=== PATIENT | female | born 1945 | race Asian ===

== ENCOUNTER 2016-10-15 19:26 | Emergency (ER) | payer OTHER ==
[~2016-10-15] VITALS: Ht 160 cm; Wt 61.2 kg
[~2016-10-15 19:26] MED LIST: ADLT ASA LOW81 MG OR; ALBUTEROL0.083 % IN; CADUET10 MG/10 M OR; CELEXA40 MG PO; CLONIDINE0.1 MG; CLONIDINE0.1 MG PO; CLOP75TA2 PO; DITROPAN XL10 MG PO; ESTRING2 MG PO; FLUTMIS14 INH; GABA300C2 PO; HYDRALAZINE50 MG PO; LINZESS290 MCG OR; LIPITOR40 MG PO; MELOXICAM15 MG PO; OMEPRAZOLE20 M2 PO; SIMV20TA2 PO; [UNRECOGNIZED DRUG - OTHER] PO
[2016-10-15 19:49] LABS: PLATELET COUNT 230 K/uL (152-353)
[2016-10-15 20:01] LABS: POTASSIUM 3.5 mmol/L (3.6-5.2); SODIUM 134 mmol/L (136-145)
[2016-10-15 22:34] VITALS: BP 184/74; TEMP 99.9
== END 2016-10-15 22:34 | disposition home or self-care (01) ==
LOC: ED 19:26
DX: J06.9 Acute upper respiratory infection, unspecified (principal); J44.1 Chronic obstructive pulmonary disease with (acute) exacerbation
CPT/HCPCS: 36415; 80053; 82550; 84484; 85027; 87081; 87804; 87880; 96374; 99284; J1885; J2930

== ENCOUNTER 2017-01-07 21:31 | Emergency (ER) | payer OTHER ==
[~2017-01-07] VITALS: Ht 160 cm; Wt 63.5 kg
[2017-01-07 22:36] LABS: PLATELET COUNT 198 K/uL (152-353)
[2017-01-07 22:48] LABS: POTASSIUM 3.6 mmol/L (3.6-5.2)
[2017-01-07 23:21] VITALS: BP 183/96; TEMP 98
== END 2017-01-07 23:24 | disposition home or self-care (01) ==
LOC: ED 21:31
DX: J44.1 Chronic obstructive pulmonary disease with (acute) exacerbation (principal)
CPT/HCPCS: 80053; 85027; 99283

== ENCOUNTER 2017-01-08 06:53 | Emergency (ER) | payer OTHER ==
[~2017-01-08] VITALS: Ht 160 cm; Wt 63.5 kg
[2017-01-08 12:00] VITALS: TEMP 98
[2017-01-08 13:36] VITALS: BP 172/65
== END 2017-01-08 13:44 | disposition home or self-care (01) ==
LOC: ED 06:53
DX: J44.1 Chronic obstructive pulmonary disease with (acute) exacerbation (principal)
CPT/HCPCS: 36600; 82805; 83880; 96374; 99284; J2930

== ENCOUNTER 2017-01-11 11:04 | Outpatient (CLI) | payer OTHER | END 2017-01-11 11:07 | disposition short-term general hospital (02) | LOC: AMB 11:04 | DX: J44.1 Chronic obstructive pulmonary disease with (acute) exacerbation (principal) | CPT/HCPCS: A0425; A0427 ==

== ENCOUNTER 2017-01-11 11:09 | Emergency (ER) | payer OTHER ==
[~2017-01-11] VITALS: Ht 160 cm; Wt 63.5 kg
[2017-01-11 11:43] LABS: PLATELET COUNT 220 K/uL (152-353)
[2017-01-11 11:50] LABS: POTASSIUM 3.5 mmol/L (3.6-5.2)
[2017-01-11 12:52] VITALS: TEMP 98
[2017-01-11 13:53] VITALS: BP 160/70
== END 2017-01-11 13:55 | disposition short-term general hospital (02) ==
LOC: ED 11:09
PROVIDERS: Emergency Medicine
DX: R06.09 Other forms of dyspnea (principal); J44.1 Chronic obstructive pulmonary disease with (acute) exacerbation; R79.89 Other specified abnormal findings of blood chemistry
CPT/HCPCS: 36415; 80053; 82550; 83880; 84484; 85007; 85027; 87040; 93005; 96374; 99281; J2930

== ENCOUNTER 2017-01-11 13:47 | Outpatient (CLI) | payer OTHER | END 2017-01-11 14:07 | disposition short-term general hospital (02) | LOC: AMB 13:47 | DX: R06.09 Other forms of dyspnea (principal); J44.1 Chronic obstructive pulmonary disease with (acute) exacerbation; R79.89 Other specified abnormal findings of blood chemistry | CPT/HCPCS: A0425; A0429 ==

== ENCOUNTER 2017-06-15 09:58 | Outpatient (CLI) | payer OTHER | END 2017-06-15 19:05 | disposition home or self-care (01) | LOC: LABW 09:58 | DX: K64.0 First degree hemorrhoids (principal) | CPT/HCPCS: 82272 ==

== ENCOUNTER 2017-07-06 17:26 | Inpatient (IN) | payer OTHER ==
[2017-07-06] VITALS (8 sets, daily range): BP systolic 124–150; BP diastolic 49–81; TEMP 98–101.9; Ht 160 cm; Wt 72.3 kg
[~2017-07-06] VITALS: Ht 160 cm; Wt 72.3 kg
[2017-07-06 19:27] LABS: PLATELET COUNT 258 K/uL (152-353)
[2017-07-06 19:31] LABS: POTASSIUM 3.9 mmol/L (3.6-5.2)
[2017-07-07] VITALS (21 sets, daily range): BP systolic 130–170; BP diastolic 55–97; TEMP 98.4–102
[2017-07-07 09:05] LABS: POTASSIUM 4.1 mmol/L (3.6-5.2)
[2017-07-07 09:13] LABS: PLATELET COUNT 217 K/uL (152-353)
[2017-07-07] MEDS ORDERED: LEVO-T112 MCG PO (10:37)
[2017-07-07] MEDS ORDERED: TRIA37.541 PO (10:46)
[2017-07-07] MEDS ORDERED: METH4TAB6 PO (10:47)
[2017-07-07] MEDS ORDERED: PROTONIX20 MG PO (10:48)
[2017-07-07] MEDS ORDERED: CLON0.1T16 PO (16:16)
[2017-07-08] VITALS (24 sets, daily range): BP systolic 106–191; BP diastolic 62–97; TEMP 98.4–100.1
[2017-07-08 06:51] LABS: PLATELET COUNT 191 K/uL (152-353)
[2017-07-08 06:53] LABS: POTASSIUM 4.1 mmol/L (3.6-5.2)
[2017-07-09] VITALS (14 sets, daily range): BP systolic 162–196; BP diastolic 69–89; TEMP 98–99
[2017-07-09 06:43] LABS: POTASSIUM 4.1 mmol/L (3.6-5.2)
[2017-07-09 06:44] LABS: PLATELET COUNT 195 K/uL (152-353)
[2017-07-10 01:43] VITALS: BP 134/68; TEMP 98.3
[2017-07-10 05:17] VITALS: BP 185/70; TEMP 98.5
[2017-07-10 07:54] VITALS: BP 184/77; TEMP 99
[2017-07-10 07:59] LABS: PLATELET COUNT 219 K/uL (152-353)
[2017-07-10 08:02] LABS: POTASSIUM 3.9 mmol/L (3.6-5.2)
[2017-07-10 12:00] VITALS: BP 186/52; TEMP 98.6
[2017-07-10 16:00] VITALS: BP 126/72; TEMP 98.6
[2017-07-11 00:51] VITALS: BP 168/59; TEMP 98.7
[2017-07-11 05:37] VITALS: BP 115/70; TEMP 98.2
[2017-07-11 05:45] LABS: POTASSIUM 3.8 mmol/L (3.6-5.2)
[2017-07-11 06:13] LABS: PLATELET COUNT 229 K/uL (152-353)
[2017-07-11 11:49] VITALS: BP 126/66; TEMP 97.8
[2017-07-11 20:00] VITALS: BP 139/73; TEMP 97.8
[2017-07-12] VITALS: BP 183/73; TEMP 97.6
[2017-07-12 05:42] LABS: PLATELET COUNT 256 K/uL (152-353)
[2017-07-12 05:58] LABS: POTASSIUM 3.9 mmol/L (3.6-5.2)
[2017-07-12 06:15] VITALS: BP 194/77; TEMP 98.6
[2017-07-12 08:00] VITALS: BP 188/66; TEMP 98.9
== END 2017-07-12 11:30 | disposition home or self-care (01) | DRG 194 ==
LOC: ED 17:26 → ICU 21:35 → MED/SURG 07-09 11:42
PROVIDERS: ADMIT Emergency Medicine
DX: J18.8 Other pneumonia, unspecified organism (principal); J44.0 Chronic obstructive pulmonary disease with (acute) lower respiratory infection; E83.42 Hypomagnesemia; D53.9 Nutritional anemia, unspecified; R51 Headache; E03.8 Other specified hypothyroidism; I10 Essential (primary) hypertension; R94.4 Abnormal results of kidney function studies
CPT/HCPCS: 36415; 36600; 51702; 80053; 80202; 81000; 82550; 82553; 82570; 82805; 83735; 84100; 84300; 84484; 84540; 85027; 87040; 87070; 87205; 90732; 93005; 94640; 94664; 94760; 96365; 96368; 96372; 96375; 96376; J0456; J0696; J1650; J1940; J2920; J2930; J3475

== ENCOUNTER 2017-08-07 11:55 | Outpatient (CLI) | payer OTHER ==
[~2017-08-07 11:55] MED LIST changes: +CLON0.1T16 PO; +LEVO-T112 MCG PO; +METH4TAB6 PO; +PROTONIX20 MG PO; +TRIA37.541 PO
== END 2017-08-07 21:42 | disposition home or self-care (01) ==
LOC: MAMMO 11:55
DX: Z12.31 Encounter for screening mammogram for malignant neoplasm of breast (principal)

== ENCOUNTER 2017-08-14 12:57 | Outpatient (CLI) | payer OTHER | END 2017-08-14 18:04 | disposition home or self-care (01) | LOC: MAMMO 12:57 | DX: N64.59 Other signs and symptoms in breast (principal) ==

== ENCOUNTER 2017-09-20 10:16 | Outpatient (CLI) | payer OTHER | END 2017-09-20 11:20 | disposition home or self-care (01) | LOC: RESP 10:16 | DX: R06.02 Shortness of breath (principal) | CPT/HCPCS: 94640 ==

== ENCOUNTER 2018-03-18 10:27 | Outpatient (CLI) | payer OTHER | END 2018-03-18 20:26 | disposition home or self-care (01) | LOC: CT 10:27 | DX: J18.8 Other pneumonia, unspecified organism (principal) ==

== ENCOUNTER 2018-06-21 09:09 | Outpatient (CLI) | payer OTHER | END 2018-06-21 19:24 | disposition home or self-care (01) | LOC: CT 09:09 | DX: J18.9 Pneumonia, unspecified organism (principal) ==

== ENCOUNTER 2018-12-02 14:18 | Emergency (ER) | payer OTHER ==
[~2018-12-02] VITALS: Ht 160 cm; Wt 55.8 kg
[2018-12-02 14:55] VITALS: BP 153/58; TEMP 96.6
[2018-12-02 16:01] LABS: PLATELET COUNT 245 K/uL (152-353)
[2018-12-02 16:35] LABS: POTASSIUM 4.8 mmol/L (3.6-5.2)
== END 2018-12-02 17:47 | disposition home or self-care (01) ==
LOC: ED 14:18
PROVIDERS: Emergency Medicine
DX: R25.2 Cramp and spasm (principal); E86.0 Dehydration
CPT/HCPCS: 80053; 85027; 99283

== ENCOUNTER 2019-07-15 15:53 | Outpatient (CLI) | payer OTHER ==
[2019-07-16] MEDS ORDERED: COZAAR25 MG PO (03:07)
[2019-07-16] MEDS ORDERED: LORA1TAB17 PO (03:09)
[2019-07-16] MEDS ORDERED: LORATADINE PO (03:12)
[2019-07-16] MEDS ORDERED: LIPITOR40 MG PO (03:14)
[2019-07-16] MEDS ORDERED: LINZESS290 MCG PO (03:16)
[2019-07-16] MEDS ORDERED: CLON0.1T16 PO (03:17)
[2019-07-16] MEDS ORDERED: TRELEGY ELLIPTA1 AER PO (03:24)
[2019-07-16] MEDS ORDERED: Chantix PO (14:53)
[2019-07-16] MEDS ORDERED: LEVAQUIN 500MG TAB PO (14:55)
[2019-07-16] MEDS ORDERED: PRED10TA27 PO (14:55)
== END 2019-07-15 15:56 | disposition short-term general hospital (02) ==
LOC: AMB 15:53
DX: R06.09 Other forms of dyspnea (principal); R06.02 Shortness of breath
CPT/HCPCS: A0425; A0427

== ENCOUNTER 2019-07-15 16:07 | Observation (INO) | payer OTHER ==
[~2019-07-15] VITALS: Ht 160 cm; Wt 60.6 kg
[2019-07-15 16:07] VITALS: BP 161/67; TEMP 98.1
[2019-07-15 16:57] LABS: PLATELET COUNT 236 K/uL (152-353)
[2019-07-15 17:05] LABS: POTASSIUM 4.3 mmol/L (3.6-5.2)
[2019-07-15 17:30] VITALS: BP 127/55
[2019-07-15 18:30] VITALS: BP 146/44
[2019-07-15 19:30] VITALS: BP 156/48
[2019-07-15 20:00] VITALS: BP 177/66; TEMP 100.9
[2019-07-15 22:49] VITALS: BP 177/66; TEMP 100.9; Ht 160 cm; Wt 60.6 kg
[2019-07-16 00:21] VITALS: BP 150/83; TEMP 98.5
[2019-07-16] MEDS ORDERED: COZAAR25 MG PO (03:07)
[2019-07-16] MEDS ORDERED: LORA1TAB17 PO (03:09)
[2019-07-16] MEDS ORDERED: LORATADINE PO (03:12)
[2019-07-16] MEDS ORDERED: LIPITOR40 MG PO (03:14)
[2019-07-16] MEDS ORDERED: LINZESS290 MCG PO (03:16)
[2019-07-16] MEDS ORDERED: CLON0.1T16 PO (03:17)
[2019-07-16] MEDS ORDERED: TRELEGY ELLIPTA1 AER PO (03:24)
[2019-07-16 04:00] VITALS: BP 181/55; TEMP 98.4
[2019-07-16 08:00] VITALS: BP 110/74; TEMP 98.3
[2019-07-16 12:00] VITALS: BP 185/57; TEMP 98.5
[2019-07-16 14:23] LABS: POTASSIUM 4.2 mmol/L (3.6-5.2)
[2019-07-16] MEDS ORDERED: Chantix PO (14:53)
[2019-07-16] MEDS ORDERED: LEVAQUIN 500MG TAB PO (14:55)
[2019-07-16] MEDS ORDERED: PRED10TA27 PO (14:55)
[2019-07-16 16:00] VITALS: BP 145/82; TEMP 98.4
== END 2019-07-16 20:02 | disposition home or self-care (01) ==
LOC: ED 16:07 → MED/SURG 19:00
PROVIDERS: Family Medicine; ADMIT Internal Medicine
DX: J44.1 Chronic obstructive pulmonary disease with (acute) exacerbation (principal); E03.8 Other specified hypothyroidism; Z72.0 Tobacco use; E78.49 Other hyperlipidemia; F41.8 Other specified anxiety disorders; K59.09 Other constipation; G62.89 Other specified polyneuropathies; I12.9 Hypertensive chronic kidney disease with stage 1 through stage 4 chronic kidney disease, or unspecified chronic kidney disease; N18.3 Chronic kidney disease, stage 3 (moderate); N17.8 Other acute kidney failure
CPT/HCPCS: 36600; 80048; 80053; 82805; 85027; 93005; 94640; 94664; 94760; 96365; 96372; 96374; 96375; 99220; 99284; G0378; J1650; J1956; J2930; J3490

== ENCOUNTER 2020-05-10 14:40 | Emergency (ER) | payer OTHER ==
[~2020-05-10] VITALS: Ht 160 cm; Wt 54.4 kg
[~2020-05-10 14:40] MED LIST changes: +COZAAR25 MG PO; +Chantix PO; +LEVAQUIN 500MG TAB PO; +LINZESS290 MCG PO; +LORA1TAB17 PO; +LORATADINE PO; +PRED10TA27 PO; +TRELEGY ELLIPTA1 AER PO
[2020-05-10 15:07] VITALS: TEMP 99.1
[2020-05-10 15:31] LABS: PLATELET COUNT 230 K/uL (152-353)
[2020-05-10 15:42] LABS: POTASSIUM 4.6 mmol/L (3.6-5.2); SODIUM 137 mmol/L (136-145)
[2020-05-10 15:47] LABS: PARTIAL THROMBOPLASTIN TIME 29.7 SECONDS (24.5-33.6)
[2020-05-10 16:00] VITALS: BP 178/52
== END 2020-05-10 16:30 | disposition home or self-care (01) ==
LOC: ED 14:40
PROVIDERS: Hospitalist
DX: J06.9 Acute upper respiratory infection, unspecified (principal); J44.9 Chronic obstructive pulmonary disease, unspecified; F17.210 Nicotine dependence, cigarettes, uncomplicated
CPT/HCPCS: 36415; 80053; 82550; 83880; 84484; 85027; 85610; 85730; 93005; 99283

== ENCOUNTER 2020-05-24 07:46 | Outpatient (CLI) | payer OTHER | END 2020-05-24 23:27 | disposition home or self-care (01) | LOC: CT 07:46 | DX: R63.4 Abnormal weight loss (principal); E03.8 Other specified hypothyroidism ==

== ENCOUNTER 2020-05-24 21:10 | Emergency (ER) | payer OTHER ==
[~2020-05-24] VITALS: Ht 160 cm; Wt 54.4 kg
[2020-05-24 22:13] LABS: PLATELET COUNT 197 K/uL (152-353)
[2020-05-24 22:30] LABS: PARTIAL THROMBOPLASTIN TIME 27.1 SECONDS (24.5-33.6)
[2020-05-24 22:36] LABS: POTASSIUM 3.8 mmol/L (3.6-5.2)
[2020-05-25 01:00] VITALS: BP 169/62; TEMP 98.5
== END 2020-05-25 01:00 | disposition home or self-care (01) ==
LOC: ED 21:10
PROVIDERS: Hospitalist
DX: K29.70 Gastritis, unspecified, without bleeding (principal); R10.13 Epigastric pain; Z79.899 Other long term (current) drug therapy
CPT/HCPCS: 36415; 80053; 80307; 80320; 81000; 82150; 83690; 85027; 85610; 85730; 96360; 96375; 99284; J1885; J2405